=== PATIENT | female | born 2000 | race Two or more races ===

== ENCOUNTER → 2024-08-14 | Emergency (ER) | payer OTHER ==
[~2024-08-14] VITALS: Ht 162.6 cm; Wt 56.7 kg
[~2024-08-14] MED LIST: ACID REDUCER20 M1; ZYRTEC10 M3
== END | disposition home or self-care (01) ==
LOC: ER 09:44
DX: M25.571 Pain in right ankle and joints of right foot (principal); Z91.040 Latex allergy status; Z91.018 Allergy to other foods